=== PATIENT | female | born 1945 | race Caucasian/White ===

== ENCOUNTER 2017-04-21 14:56 | Outpatient (CLI) | payer MEDICARE, OTHER ==
--- NOTE | 2017-04-23 13:09 | Mammography Report ---
DIGITAL SCREENING MAMMOGRAM: 04/21/2017 CLINICAL INDICATION: A 71-year-old with history of bilateral reduction for screening. COMPARISON: 12/2012, 12/2011, 03/2010 TECHNIQUE: Routine CC and MLO projections were obtained of the breasts. FINDINGS: The breasts demonstrate scattered fibroglandular densities bilaterally. Post-reduction ch anges are stable. Coarse and punctate, typically benign calcifications are present. No suspicious m asses, clustered microcalcifications, or regions of architectural distortion are identified. IMPRESSION: BENIGN FINDINGS. RECOMMENDATION: Routine annual screening unless otherwise clinically indicated. BIRADS CATEGORY 2 - BENIGN FINDINGS. STANDARD QUALIFYING STATEMENTS 1. This examination was reviewed with the aid of Computer-Aided Detection (CAD). 2. A negative or benign imaging report should not delay biopsy if clinically suspicious findings are present. Consider surgical consultation if warranted. More than 5% of cancers are not identified by i maging. 3. Dense breasts may obscure an underlying neoplasm. JOB #: [id number] EXT JOB #:[id number]
== END 2017-04-21 14:57 | disposition home or self-care (01) ==
LOC: DI.S 14:56
PROVIDERS: ATTEND Physician Assistant
DX: Z12.31 Encounter for screening mammogram for malignant neoplasm of breast (principal)
CPT/HCPCS: 77067

== ENCOUNTER 2017-04-21 14:57 | Outpatient (CLI) | payer MEDICARE, OTHER ==
--- NOTE | 2017-04-22 08:53 | XRAY Report ---
TWO-VIEW THORACIC SPINE: 04/21/2017 CLINICAL INDICATION: Back pain. FINDINGS: Frontal and lateral views of the thoracic spine demonstrate mild degenerative disk disease . There is no evidence of fracture or subluxation. No paraspinal hematoma is seen. IMPRESSION: MILD DEGENERATIVE DISK DISEASE. JOB #: [id number] EXT JOB #:[id number]
--- NOTE | 2017-04-22 08:55 | XRAY Report ---
COMPLETE CERVICAL SPINE: 04/21/2017 CLINICAL INDICATION: Neck pain. COMPARISON: 01/12/2012 FINDINGS: AP, lateral, oblique, odontoid views of the cervical spine demonstrate progression of dege nerative disc and facet disease. There is no evidence of acute fracture or subluxation. Osseous kathy ral foraminal narrowing is again noted, right worse than left. The prevertebral soft tissues are unr emarkable. IMPRESSION: PROGRESSION OF DEGENERATIVE CHANGES. NO EVIDENCE OF INTERVAL FRACTURE. JOB #: [id number] EXT JOB #:[id number]
--- NOTE | 2017-04-22 08:56 | XRAY Report ---
THREE-VIEW BILATERAL HANDS: 04/21/2017 CLINICAL INDICATION: Hand pain. FINDINGS: AP, lateral, oblique views of the bilateral hands demonstrate right worse than left osteoa rthritis of the interphalangeal joints. There is no evidence of acute fracture or dislocation. No r adiopaque foreign body is seen in the soft tissues. IMPRESSION: RIGHT WORSE THAN LEFT OSTEOARTHRITIS. JOB #: [id number] EXT JOB #:[id number]
== END 2017-04-21 14:58 | disposition home or self-care (01) ==
LOC: DI.S 14:57
PROVIDERS: ATTEND Physician Assistant
DX: M50.30 Other cervical disc degeneration, unspecified cervical region (principal); M43.02 Spondylolysis, cervical region; M51.34 Other intervertebral disc degeneration, thoracic region; M19.042 Primary osteoarthritis, left hand; M19.041 Primary osteoarthritis, right hand
CPT/HCPCS: 72050; 72070

== ENCOUNTER 2018-12-09 15:17 | Outpatient (CLI) | payer MEDICARE, OTHER ==
--- NOTE | 2018-12-09 17:09 | Ultrasound Report ---
Reason: PAIN IN LEFT LOWER LEG Procedure Date: 12/09/2018 Accession Number: [id number] / [id number] Procedure: US - Duplex Ext Veins Left CPT Code: FULL RESULT: EXAM: LEFT LOWER EXTREMITY VENOUS ULTRASOUND EXAM DATE: 12/09/2018 03:50 PM. CLINICAL HISTORY: PAIN IN LEFT LOWER LEG. COMPARISON: None. TECHNIQUE: Real-time sonographic vascular imaging was performed by the logistics system engineer through the lower extremity utilizing both color-flow and Doppler spectral analysis. Multiple customer contact representative static images were saved for review. FINDINGS: Common Femoral Vein (CFV): Normal. CFV-GSV Junction: Normal. Profunda Femoral Vein (PFV): Normal. Femoral Vein (FV) Prox: Poor flow, not compressible. Femoral Vein (FV) Mid: Poor flow, not compressible. Femoral Vein (FV) Dist: Normal. Popliteal Vein: Normal. Posterior Tibial Veins: Normal. Peroneal Veins: Normal. Other: None. IMPRESSION: Nonocclusive thrombus in the proximal and mid femoral vein. RADIA The above critical result findings were discussed with Dr. Murray by Dr. John Lantigua at 05:07 PM on 12/09/2018.
== END 2018-12-09 15:18 | disposition home or self-care (01) ==
LOC: DI 15:17
PROVIDERS: ATTEND Nurse Practitioner Family
DX: I82.412 Acute embolism and thrombosis of left femoral vein (principal)

== ENCOUNTER 2018-12-22 13:23 | Outpatient (CLI) | payer MEDICARE, OTHER ==
--- NOTE | 2018-12-22 14:00 | CT Report ---
Reason: HEADACHE Procedure Date: 12/22/2018 Accession Number: [id number] / [id number] Procedure: CT - HEAD WO CPT Code: FULL RESULT: EXAM: CT HEAD EXAM DATE: 12/22/2018 01:44 PM. CLINICAL HISTORY: HEADACHE. COMPARISON: None. TECHNIQUE: Multiaxial CT images were obtained from the foramen magnum to the vertex. Reformats: Sagittal and coronal. IV contrast: None. In accordance with CT protocol optimization, one or more of the following dose reduction techniques were utilized for this exam: automated exposure control, adjustment of mA and/or KV based on patient size, or use of iterative reconstructive technique. FINDINGS: Parenchyma: No intraparenchymal hemorrhage. No evidence of mass, midline shift, or CT findings of infarction. Diego-white differentiation is distinct. Extraaxial Spaces: Moderate bilateral frontal lobe atrophy somewhat excessive for age. No subdural or epidural collections identified. Ventricles: Normal in size and position. Sinuses and Orbits: Imaged paranasal sinuses, orbits, and mastoids show no significant abnormality. Bones: No evidence of fracture or calvarial defect. Other: None. IMPRESSION: 1. Moderate bilateral frontal lobe atrophy somewhat excessive for age. 2. Otherwise negative examination. RADIA
== END 2018-12-22 13:24 | disposition home or self-care (01) ==
LOC: DI 13:23
PROVIDERS: ATTEND Nurse Practitioner Family
DX: G31.9 Degenerative disease of nervous system, unspecified (principal); R51 Headache
CPT/HCPCS: 70450

== ENCOUNTER 2019-05-18 08:30 | Outpatient (CLI) | payer MEDICARE, OTHER ==
--- NOTE | 2019-05-19 02:40 | Ultrasound Report ---
Reason: DVT Procedure Date: 05/18/2019 Accession Number: [id number] / [id number] Procedure: US - Duplex Ext Veins Left CPT Code: Final Report FULL RESULT: EXAM: LEFT LOWER EXTREMITY VENOUS ULTRASOUND EXAM DATE: 05/18/2019 09:31 AM. CLINICAL HISTORY: History of DVT, undergoing anticoagulation treatment. COMPARISON: None. TECHNIQUE: Real-time sonographic vascular imaging was performed by the electromechanical technologist through the lower extremity utilizing both color-flow and Doppler spectral analysis. Multiple customer development representative static images were saved for review. FINDINGS: Common Femoral Vein (CFV): No evidence of thrombus. CFV-GSV Junction: No evidence of thrombus. Profunda Femoral Vein (PFV): No evidence of thrombus. Femoral Vein (FV) Prox: No evidence of thrombus. Femoral Vein (FV) Mid: No evidence of thrombus. Femoral Vein (FV) Dist: No evidence of thrombus. Popliteal Vein: No evidence of thrombus. Posterior Tibial Veins: No evidence of thrombus. Peroneal Veins: No evidence of thrombus. Other: None. IMPRESSION: No evidence for deep venous thrombosis. RADIA
== END 2019-05-18 08:31 | disposition home or self-care (01) ==
LOC: DI 08:30
PROVIDERS: ATTEND Physician Assistant
DX: I82.409 Acute embolism and thrombosis of unspecified deep veins of unspecified lower extremity (principal)

== ENCOUNTER 2021-06-29 15:22 | Outpatient (CLI) | payer MEDICARE ==
--- NOTE | 2021-06-30 13:41 | Mammography Report ---
BILATERAL DIGITAL SCREENING MAMMOGRAM 3D/2D: 06/29/2021 CLINICAL: Routine screening. Comparison is made to exams dated: 04/21/2017 mammogram, 12/22/2012 mammogram, and 12/17/2011 mammogram - [facility]. There are scattered fibroglandular elements in both breasts. No significant masses, calcifications, or other findings are seen in either breast. There has been no significant interval change. IMPRESSION: NEGATIVE There is no mammographic evidence of malignancy. A 1 year screening mammogram is recommended. This exam was interpreted at Station ID: [id number]. NOTE: For mammograms, a report in lay terms will be sent to the patient. Approximately 15% of breast malignancies will not be visualized mammographically. In the management of a palpable breast mass, a negative mammogram must not discourage biopsy of a clinically suspicious lesion. Electronically Signed By: Giles Goetz M.D. aty/penrad:06/30/2021 07:28:20 ACR BI-RADS Category 1: Negative 3341F PARENCHYMAL PATTERN: (A) - The breast(s) demonstrate(s) scattered fibroglandular densities. BI-RADS CATEGORY: (1) - 1 RECOMMENDATION: (ANNUAL) - Recommend routine annual screening mammography. [id number] 1 year screening LATERALITY: (B)
== END 2021-06-29 15:23 | disposition home or self-care (01) ==
LOC: DI.S 15:22
DX: Z12.31 Encounter for screening mammogram for malignant neoplasm of breast (principal)

== ENCOUNTER 2021-08-23 09:26 | Outpatient (CLI) | payer MEDICARE ==
--- NOTE | 2021-08-23 12:10 | XRAY Report ---
PROCEDURE: Cervical Spine 2 View INDICATIONS: Pain TECHNIQUE: 3 view(s) of the cervical spine were acquired. COMPARISON: None. FINDINGS: Bones: No fractures or dislocations to the T1 level. The lateral masses of C1 appear intact on the odontoid view. No suspicious bony lesions. Disc space narrowing and hypertrophic facet joints noted in the mid to lower cervical spine is associated with grade 1 anterior spinal listhesis at C3-4. Jim tebral body height is preserved. Straightening of the normal cervical lordosis may relate to muscle s pasm or positioning. Soft tissues: No prevertebral soft tissue swelling. Surgical clips noted in the right neck IMPRESSION: 1. Multilevel degenerative disc disease and arthropathy lower cervical spine results in straightening of the normal cervical lordosis and grade 1 anterior spondylolisthesis at C3-4 Reviewed by: Gasper Pascual MD on 08/23/2021 11:08 AM [facility] Approved by: Gasper Pascual MD on 08/23/2021 11:08 AM [facility] Station ID: [id number]
== END 2021-08-23 09:27 | disposition home or self-care (01) ==
LOC: DI.S 09:26
PROVIDERS: ATTEND Nurse Practitioner Family
DX: M47.812 Spondylosis without myelopathy or radiculopathy, cervical region (principal); M50.31 Other cervical disc degeneration, high cervical region; M43.12 Spondylolisthesis, cervical region

== ENCOUNTER 2022-01-01 14:50 | Outpatient (CLI) | payer MEDICARE | END 2022-01-01 14:51 | disposition home or self-care (01) | LOC: LAB.S 14:50 | PROVIDERS: ATTEND Registered Nurse | DX: N30.00 Acute cystitis without hematuria (principal) | CPT/HCPCS: 87086; 87181 ==

== ENCOUNTER 2022-03-11 12:31 | Outpatient (CLI) | payer MEDICARE ==
--- NOTE | 2022-03-11 17:28 | DEXA Report ---
PROCEDURE: Dexa Spine and/or Hip INDICATIONS: POST MENOPAUSAL TECHNIQUE: Dual energy x-ray absorptiometry (DXA) was performed on a [employer] (acquired by [employer]) System. Regions measur ed are the AP Spine, femoral neck, and if needed forearm. COMPARISON: None. FINDINGS: Lumbar Spine: Bone Mineral Density 1.372 g/cm/cm,T score 1.6, normal Left total Hip: Bone Mineral Density 0.996 g/cm/cm,T score -0.1, normal Left Femoral Neck: Bone Mineral Density 0.895 g/cm/cm, T score -1.0, normal (T score greater or equal to -1.0: NORMAL) (T score from -1.1 to -2.4: OSTEOPENIA) (T score less than or equal to -2.5 to: OSTEOPOROSIS) Impression: Normal bone mineral density Patients with diagnosis of osteoporosis or osteopenia should have regular bone mineral density assess ment. For those eligible for Medicare, routine testing is allowed once every 2 years. Testing frequ ency can be increased for patients who have rapidly progressing disease or for those who are receivin g medical therapy to restore bone mass. Reviewed by: Kristian Rene on 03/11/2022 5:27 PM PDT Approved by: Kristian Rene on 03/11/2022 5:27 PM PDT Station ID: [id number]
== END 2022-03-11 12:32 | disposition home or self-care (01) ==
LOC: DI 12:31
PROVIDERS: ATTEND Nurse Practitioner Family
DX: Z78.0 Asymptomatic menopausal state (principal)

== ENCOUNTER 2022-03-20 08:00 | Outpatient (CLI) | payer MEDICARE | END 2022-03-20 23:59 | disposition home or self-care (01) | LOC: LAB 08:00 | PROVIDERS: ATTEND Physician Assistant | DX: N30.00 Acute cystitis without hematuria (principal) | CPT/HCPCS: 87086 ==

== ENCOUNTER 2022-12-29 09:04 | Outpatient (CLI) | payer MEDICARE ==
--- NOTE | 2022-12-29 13:35 | Ultrasound Report ---
PROCEDURE: Abdomen Limited INDICATIONS: ELEVATED LIVER ENZYMES TECHNIQUE: Real-time focused scanning was performed of the abdomen, with image documentation. COMPARISONS: None. FINDINGS: Liver: Increased liver echogenicity, commonly mild hepatic steatosis. Benign right hepatic cyst kimberly uring 1.7 cm Gallbladder: Absent. Biliary ducts: Intrahepatic bile ducts are non-dilated. Extrahepatic bile duct caliber measures 8 m m. Normal is 6-7 mm or less in diameter, or 10 mm or less post-cholecystectomy. Pancreas: Visualized portions of the pancreas are sonographically normal. Right kidney: Normal in size and echotexture. Right kidney measures 9.6 cm long. No hydronephrosis o r nephrolithiasis. No solid masses. No complex renal cystic lesions which require follow-up. IVC: Intrahepatic inferior vena cava is patent. Miscellaneous: No free abdominal fluid. IMPRESSION: Increased liver echogenicity, commonly caused by hepatic steatosis. Reviewed by: Ravinder Mackenzie on 12/29/2022 1:33 PM PDT Approved by: Ravinder Mackenzie on 12/29/2022 1:33 PM PDT Station ID: [id number]
== END 2022-12-29 09:05 | disposition home or self-care (01) ==
LOC: DI 09:04
PROVIDERS: ATTEND Nurse Practitioner Family
DX: R74.01 Elevation of levels of liver transaminase levels (principal)

== ENCOUNTER 2023-05-29 09:25 | Emergency (ER) | payer MEDICARE ==
--- NOTE | 2023-05-29 10:45 | ED Physician Documentation ---
PD HPI BACK PAIN - Stated complaint Stated Complaint: BACK PAIN/SHOULDER - Chief complaint Chief Complaint: Back Pain - History obtained from History obtained from: Patient - History of Present Illness Timing - onset: How many days ago (2-3) Timing - duration: Days (2-3) Timing - details: Gradual onset, Still present Location: Upper, Left (onset of pain left suprascapular area that has steadily worsened and is radiating to left shoulder and underside of left upper arm. No weakness of arm. Has mild feeling of numbness undersaide of upper arm. Painful to the touch and with movement. Not improved with rest; steady pain. Left side only.) Quality: Pain, Aching. No: Spasm Associated symptoms: No: Fever, Weakness, Numbness Worsened by: Movement, Palpation Contributing factors: No: Lifting, Twisting, Trauma Similar symptoms before: Has not had sx before Recently seen: Clinic (walk in yesterday and given Toradol IM and muscle relaxant without improvement. Pain worse today and unrelenting.) Review of Systems Constitutional: denies: Fever, Chills, Myalgias Cardiac: denies: Chest pain / pressure, Palpitations Respiratory: denies: Dyspnea, Cough GI: reports: Nausea. denies: Vomiting Skin: denies: Rash, Lesions Neurologic: denies: Focal weakness, Numbness, Headache PD PAST MEDICAL HISTORY - Past Medical History Past Medical History: Yes Neuro: Migraines - Past Surgical History Past Surgical History: Yes General: Cholecystectomy - Present Medications Home Medications: Ambulatory Orders Medication Instructions Recorded Confirmed HYDROcod/ACETAM 5/325 [Hawthorne 5/325] 1 ea PO Q6H PRN #20 tablet 05/29/23 Ondansetron Odt [Zofran] 4 mg TL Q6H PRN #10 tablet 05/29/23 dexAMETHasone [Decadron] 4 mg PO DAILY #5 tablet 05/29/23 - Allergies Allergies/Adverse Reactions: Allergies Allergy/AdvReac Type Severity Reaction Status Date / Time codeine Allergy Hives Verified 05/29/23 09:39 Penicillins Allergy Hives Verified 05/29/23 09:40 - Social History Does the pt smoke?: No Smoking Status: Never smoker Does the pt drink ETOH?: No Does the pt have substance abuse?: No - Immunizations Immunizations are current?: Yes - POLST Patient has POLST: No PD ED PE NORMAL - Vitals Vital signs reviewed: Yes - General General: Alert and oriented X 3, Well developed/nourished, Other (appears in pain and distressed emotionally due to the unrelentingness of the pain. ) - Neck Neck: Supple, no meningeal sign, No adenopathy - Cardiac Cardiac: RRR, No murmur - Respiratory Respiratory: Clear bilaterally - Back Back: Other (she has tenderness adjacent to left mid cervical area. No rash nor sores. Markedly tender there to the suprascapular area and to the posterior shoulder and underside of upper arm. Normal pulses in wrist and color of fingernails. ) - Derm Derm: Normal color, Warm and dry, No rash - Neuro Neuro: Alert and oriented X 3, No motor deficit, No sensory deficit, Normal speech Results - Vitals Vitals: Oxygen O2 Source Room air PD Medical Decision Making - ED course Complexity details: considered differential (the pain is following mainly nerve root pattern and there is tender to touch and movement. Consider developing shingles but no rash at 3 days. Pt doubted shingles so will hold on antivirals for now but to return/call if rash and can add. Otherwise go with radiculitis. ), d/w patient Departure - Departure Disposition: 01 Home, Self Care Clinical Impression: Pain of left scapula, Cervical radicular pain Condition: Stable Record reviewed to determine appropriate education?: Yes Follow-Up: SO FLROES ARNP [Primary Care Provider] - Prescriptions: dexAMETHasone [Decadron] 4 mg PO DAILY #5 tablet HYDROcod/ACETAM 5/325 [Hawthorne 5/325] 1 ea PO Q6H PRN #20 tablet PRN Reason: Pain Ondansetron Odt [Zofran] 4 mg TL Q6H PRN #10 tablet PRN Reason: Nausea / Vomiting Comments: At this point would presume a muscular type pain although the distribution of it in the consistency of it would be suggestive of a nerve irritation/"pinched nerve". Other considerations though there is no rash at this time would be a nerve infection such as shingles. At this point would treat with a combination of anti-inflammatories. I wrote for Decadron steroid type anti-inflammatory for the next 5 days. Continue with the muscle relaxant previously prescribed. Local effect can be tried with lidocaine patch to the area that is most tender and sore. Add Tylenol 500 650 mg every 4-6 hours if needed for pain and hydrocodone/acetaminophen if needed for worse pain. I sent your prescriptions to your preferred pharmacy, [facility] in [place]. If you develop a rash in that area over the next day or 2, then contact your primary care or the walk-in or such as we could add a antiviral medicine (if it looks more like shingles at). Otherwise I would anticipate improvement over the next few days. I am prescribing a short course of narcotic pain medication for you. These are potentially dangerous and addictive medications that should be used carefully. These medications may constipate you. Take an kmul-pzy-subcppj stool softener such as docusate twice daily with plenty of water while taking these medications. If you go 24 hours without a bowel movement, take ztep-yqi-vdwyles MiraLAX, per package instructions. Do not drink or drive while taking these medications. If you received narcotic or sedating medications while in the emergency department do not drive for 24 hours. Store this medication in a safe, secure place and out of reach of children. It is a violation of federal law to give or sell this medication to another person or to use in a manner other than prescribed. The ED will not refill narcotic prescriptions, including prescriptions lost or stolen. You can dispose of unwanted medications at the [facility]'s office or at several pharmacies such as [facility] Discharge Date/Time: 05/29/23 13:49
[2023-05-29] MEDS ORDERED: dexAMETHasone 4 MG TABLET PO STA (11:20)
[2023-05-29] MEDS ORDERED: HYDROmorphone 1 MG/ML CARPUJECT IM STA (11:21)
[2023-05-29] MEDS ORDERED: NAPROXEN 250 MG TABLET PO STA (11:21)
[2023-05-29] MEDS ORDERED: ONDANSETRON ODT 4 MG TABLET TL STA (12:14)
[2023-05-29 12:56] VITALS: BP 164/72; O2SAT 94
== END 2023-05-29 13:49 | disposition home or self-care (01) ==
LOC: ED 09:25
DX: M25.512 Pain in left shoulder (principal); M54.12 Radiculopathy, cervical region
CPT/HCPCS: 96372; 99283; A9270; J1170; J8540; Q0162

== ENCOUNTER 2023-06-08 10:20 | Outpatient (CLI) | payer MEDICARE ==
--- NOTE | 2023-06-08 10:43 | CARDIAC PROCEDURE NOTE ---
Stress Test Report Service Date: 06/08/23 Service Time: 10:30 Ordering Provider: Lianet Lopez NP Indication for Test: Assess progressive exercise intolerance. Significant Medical History: Marci is referred for a treadmill stress echocardiogram today, to assess for a gradually progressive decrease in exertional tolerance, primarily manifested by her becoming excessively fatigued while walking her dogs on a route at a local dog park. Whereas she previously could walk without limitation she now "runs out of energy" after a single lap around the perimeter of the park. She does not experience much dyspnea and denies experiencing any chest discomfort, palpitations or exertional lightheadedness (though does occasionally have the latter with overly quick changes in head position). She can still walk back up the hill to her home after visiting a favorite neighbor who lives at the [place] of the hill, but has to pace herself increasingly. Cardiac Risk Factors: Positive for hyperlipidemia (treated with atorvastatin for >10 yrs), family history of CAD in both parents and possibly her sister, as well as personal history of abnormal carotid artery duplex study showing diffuse intimal thickening; no history of known hypertension, diabetes or tobacco smoking ever. Type of Stress Test: ETT with Echocardiography Procedure: -Exercise Treadmill Test- After signing informed consent, the patient underwent echo imaging at rest and then performed treadmill exercise using a Humberto protocol. The patient exercised for 4 minutes 57 secondsnand achieved a peak heart rate of 133 (92 percent predicted maximum heart rate for age), and an estimated workload of 7 METS. The test was terminated due to fatigue/shortness of breath. Resting heart rate: 79 Peak heart rate: 133 Normal response to exercise. Resting BP: 143/79 Peak BP: 177/104 Elevated resting systolic BP with normal increase in systolic and abnormal increase in diastolic BPs in response to exercise. Rhythm during exercise: Sinus rhythm throughout, without clear evidence of PVCs during exercise, but intermittent monoform PVCs seen in early recovery. Symptoms: She experienced dyspnea and her typical feeling of lack of energy, wtih progressive exertion; no description of any chest discomfort. EKG at rest showed normal sinus rhythm with rSr' pattern in V1 consistent with minor RV conduction delay. EKG at peak stress showed no clear evidence of ischemia by EKG criteria, however the tracing quality was so poor in later stages of exercise as to render the tracings non-diagnostic. In Recovery BP dropped precipitously at 1:00, from 177/104 at peak to 105/74, then increased back serially to 131/64 and 128/60. Echo imaging, performed at rest and with stress, will be reported separately. I, Geo Santana MD, was present throughout this treadmill stress study and supervised it in its entirety. Summary: 1) Modestly decreased exercise tolerance for age and sex as evidenced by SHIVANI of 5%. 2) Normal resting EKG. 3) Adequate level of exercise was achieved on this treadmill stress test. 4) Normal increase of systolic BP response to exercise, though with unexpected and transient drop in early Recovery. 5) EKG was so marked by artifact around peak exercise as to render it non- diagnostic. 6) Echo image interpretation reveals normal left ventricular size, wall thickness and systolic function, with appropriate hyperdynamic augmentation of all segments with exercise, indicating no evidence of prior infarct or inducible ischemia. 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 See separate report for more details. Conclusions and Recommendations: 1) The study appears negative for major inducible ischemia per echo images, with modestly reduced exercise time for age and sex. 2) There was elevation of resting systolic BP, and documentation of a similar elevation at a recent clinic visit; I recommended that Marci obtain an automated arm BP cuff and try to: 1) obtain 10-20 readings at rest over the next several days, and 2) schedule a follow up visit with Ms Lopez, to review these results and initiate anti-hypertensive medication (if appropriate), prior to her planned departure to [place] for 6 months (on June 21). 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 It would also be reasonable for her to be formally evaluated by a Property Caretaker after the TTE is completed. She will discuss with John the pros and cons of evaluation at either [facility] (with Dr Alcocer or Derrick) or with the [facility] (whom her sees).
== END 2023-06-08 10:21 | disposition home or self-care (01) ==
LOC: DI 10:20
PROVIDERS: ATTEND Nurse Practitioner Family
DX: R68.89 Other general symptoms and signs (principal); I49.3 Ventricular premature depolarization; E78.5 Hyperlipidemia, unspecified; Z82.49 Family history of ischemic heart disease and other diseases of the circulatory system; R03.0 Elevated blood-pressure reading, without diagnosis of hypertension; I05.8 Other rheumatic mitral valve diseases
CPT/HCPCS: 93350

== ENCOUNTER 2024-02-10 08:54 | Outpatient (CLI) | payer MEDICARE | END 2024-02-10 08:55 | disposition home or self-care (01) | LOC: DI 08:54 | PROVIDERS: ATTEND Registered Nurse | DX: I34.0 Nonrheumatic mitral (valve) insufficiency (principal); I34.1 Nonrheumatic mitral (valve) prolapse | CPT/HCPCS: 93307 ==